=== PATIENT | male | born 1975 | race Caucasian/White ===

== ENCOUNTER → 2017-05-16 | Outpatient (CLI) | payer OTHER ==
[~2017-05-16] MED LIST: ARICEPT10 M1 PO; CYCLOBENZAPRINE5 M3 PO; KEFLEX500 MG PO; LOPID600 MG PO; MEDROL DOSEPAK4 MG PO; PRAVACHOL20 MG PO; PRILOSEC20 MG PO; SYNTHROID0.025 MG PO
== END | disposition home or self-care (01) ==
LOC: CT 10:40
DX: F03.90 Unspecified dementia, unspecified severity, without behavioral disturbance, psychotic disturbance, mood disturbance, and anxiety (principal); C71.6 Malignant neoplasm of cerebellum; Z98.890 Other specified postprocedural states; Z85.841 Personal history of malignant neoplasm of brain

== ENCOUNTER 2017-05-25 18:48 | Emergency (ER) | payer OTHER ==
[~2017-05-25] VITALS: Ht 167.6 cm; Wt 56.7 kg
[2017-05-25] MEDS ORDERED: PREDNISONE10 MG PO (19:44)
[2017-05-25] MEDS ORDERED: CYCLOBENZAPRINE5 M3 PO (19:44)
== END 2017-05-25 19:51 | disposition home or self-care (01) ==
LOC: ED 18:48
DX: S03.43XA Sprain of jaw, bilateral, initial encounter (principal); X58.XXXA Exposure to other specified factors, initial encounter; Y93.9 Activity, unspecified; Y92.89 Other specified places as the place of occurrence of the external cause; Y99.8 Other external cause status

== ENCOUNTER 2017-05-31 23:00 | Inpatient (IN) | payer OTHER ==
[~2017-05-31] VITALS: Ht 167.6 cm; Wt 60.0 kg
--- NOTE | ~2017-05-31 | CON ---
[place], [place] REPORT OF CONSULTATION NAME: JUAN PATTERSON UNIT #: [id number] ROOM: 505 DOCTOR: SONAL ESPARZA,PRISCILA BIRTHDATE: [birth year] DOS: 06/04/2017 HISTORY OF PRESENT ILLNESS: The patient is known with cirrhotic liver and compromised cognition, not secondary to serum ammonia level, advanced fatty metamorphosis of liver, which I expect to be cirrhotic, abnormal liver function tests. This could be a genetic mutation, multiple family members including mother with liver cirrhosis. His serum ferritin has been 1780. His INR 1.0, iron level 77, serum ammonia 23. Urine culture negative. Ultrasound of the abdomen, diffuse hepatic steatosis with suspected 1 cm lesion. MRI of the abdomen was done, details as indicated in the chart reviewed with parent and family members, diffuse fatty metamorphosis and no acute findings otherwise has been noticed. They have recommended 3 months follow up with MRI to have a baseline for the nonpathologic lesion that has been identified in the liver. His labs reviewed, records reviewed. REVIEW OF SYSTEMS: No hematemesis, no hematochezia, no shortness of breath, no chest pain. Digestive system: No diarrhea, no vomiting. PHYSICAL EXAMINATION: VITAL SIGNS: Mentally slow. HEENT: Head normocephalic, nontraumatic. Otherwise, mouth and buccal mucosa benign. NECK: Supple, no thyromegaly. CHEST: Symmetric anatomy, equal expansion. HEART: Normal sinus rhythm, no gallop, no murmur. ABDOMEN: Protuberant with liver enlargement. Bowel sounds present. EXTREMITIES: No cyanosis, no pedal edema. NEUROLOGIC: Alert and slow orientation. IMPRESSION AND PLAN: Recently found diffuse fatty liver, most likely early cirrhosis, multiple family members with liver disease. Serum ferritin level of greater than 8000. Iron level normal. I have still other orders waiting and I am going to get also antimitochondrial antibody if it has not been ordered. Ceruloplasmin, result is pending and workup in progress. I have recommended to the parents that this patient is better off to have followup [facility] or [facility] for his liver followup. PRISCILA PRUITT MD CM:CONSTR:REPORT OF CONSULTATION 1611 06/05/17 0030 interface
--- NOTE | ~2017-05-31 | CON ---
[place], [place] REPORT OF CONSULTATION NAME: JUAN PATTERSON UNIT #: [id number] ROOM: 523 DOCTOR: MACHO DERAS DPM BIRTHDATE: [birth year] DOS: 06/02/2017 SUBJECTIVE: This 42-year-old white male was seen and consulted for foot care bilaterally. The patient's parents states that he has thick calluses on the bottom of his feet. They did notice bleeding a few weeks ago, but have not seen it recently. The patient is diabetic. He came in with a blood sugar of 898. PAST MEDICAL HISTORY: Positive for medulloblastoma, TMJ syndrome, hypothyroidism, history of radiation and chemotherapy; esophageal ulcer and stricture, some mild dementia, history of hearing loss. ALLERGIES: None. CURRENT MEDICATIONS: Include Zestril, Lovenox, Aricept, Protonix, Synthroid, ____, insulin, heparin, Restoril, [place]. OBJECTIVE: Upon lower extremity physical examination, his pedal pulses are palpable. Skin temperature is warm. CFT is less than 2 seconds to all digits. Hair growth is present. No dependent edema is seen bilaterally. Sensation appears mildly decreased in the forefoot bilaterally. Plantar fat pad atrophy is seen in the metatarsal areas with prominent metatarsal heads noted. Some tenderness noted at the MPJs bilaterally. Nails 1 through 5 bilaterally are elongated and discolored, thick and dystrophic with debris present. There is thick hyperkeratotic tissue noted, plantar first and fifth metatarsal head bilaterally with no open areas, hemorrhagic tissue or signs of infection. No surrounding edema or erythema. No drainage or malodor. ASSESSMENT: Diabetes mellitus, onychomycosis 1 through 5 bilaterally, hyperkeratotic lesions bilaterally. PLAN: Consult is performed. Manual debridement of nails 1 through 5 bilaterally in length and thickness to the level of the nail bed to reduce hazards such as infection. I debrided hyperkeratotic lesions bilaterally. Discussed with the patient and his mother about palliative care at home as well as coming to the office for palliative foot care every 2 months. Discussed proper diabetic foot care. Follow up in 2 months as an outpatient. Thank you for the opportunity to take part in care of this patient. [place], [place] REPORT OF CONSULTATION NAME: JUAN PATTERSON UNIT #: [id number] ROOM: 523 DOCTOR: MACHO DERAS DPM BIRTHDATE: [birth year] MACHO DERAS DPM CM:CONSTR:REPORT OF CONSULTATION 1156 06/02/17 1234 interface
--- NOTE | ~2017-05-31 | CON ---
[place], [place] REPORT OF CONSULTATION NAME: JUAN PATTERSON UNIT #: [id number] ROOM: 523 DOCTOR: PRISCILA PRUITT MD BIRTHDATE: [birth year] DOS: 06/02/2017 HISTORY OF PRESENT ILLNESS: This is a 42-year-old patient who has presented with weakness, tiredness. The patient had to be assessed with abnormal liver function test and fatty liver at this age without alcohol history. White blood cell was 8, H and H 15 and 44, platelet count 301. Ionized calcium 4.6. Lactic acid 3.6. CT of the head, left anterior semiovalum uncertain etiology represent parenchymal underlying. Pathology in the brain as detailed. Suboccipital surgery history. The patient's blood sugar of about 900 with pseudohyponatremia, borderline electrolyte imbalance that has been addressed, SGOT, SGPT elevation of 100 and 180+. Lipase normal. Ketones positive 1-4. Lactic acid 3.4. Sonogram of the abdomen, liver with diffuse hepatic steatosis, hypoechoic lesion in the liver in the left side, 1 cm in its diameters. MRI of the liver has been ordered. Urine cultures have been negative. Comprehensive metabolic panel reassessed again. Blood glucose level has been controlled. PAST MEDICAL HISTORY: TMJ, hypothyroidism, medulloblastoma history, status post chemotherapy; esophageal ulcer, mild dementia. PAST SURGICAL HISTORY: Occipital craniotomy. ALLERGIES: To no known medication. MEDICATIONS: Medication list has been reviewed. SOCIAL HISTORY: Nonsmoker, nonalcohol consumer. FAMILY HISTORY: Noncontributory. REVIEW OF SYSTEMS: HEENT: Denies double vision, blurred vision. RESPIRATORY: Denies shortness of breath. CARDIOVASCULAR: Denies chest pain. DIGESTIVE SYSTEM: He expresses nausea. PHYSICAL EXAMINATION: VITAL SIGNS: Stable. HEENT: Status post medulloblastoma history, otherwise eyes pupils round, reactive. Sclerae nonicteric. Conjunctivae pink. NECK: Supple, no thyromegaly. CHEST: Symmetric anatomy, equal expansion. No wheeze, no rhonchi. HEART: Normal sinus rhythm, no gallop, no murmur. ABDOMEN: Soft. No hepato-organomegaly. Bowel sounds present. EXTREMITIES: No cyanosis, no pedal edema. NEUROLOGIC: Alert, oriented to time, place, person. IMPRESSION: Abnormal liver function test, diffuse fatty metamorphosis of liver with a nodule in the liver. The patient with multi-family members with cirrhotic liver, wondering if a genetic predisposition, medulloblastoma history in past, uncontrolled diabetes mellitus. [place], [place] REPORT OF CONSULTATION NAME: JUAN PATTERSON UNIT #: [id number] ROOM: 523 DOCTOR: SONAL ESPARZA,PRISCILA BIRTHDATE: [birth year] PLAN AND DISCUSSION: We are going to obtain a MRI of the liver for definition of nodules in liver with a diameter of 1 cm. Otherwise medical management of other issues on hand, I am going to do a basic liver workup including viral hepatitis antibodies, serum ceruloplasmin, ferritin level and basic workup. Other including serum ammonia and PT, PTT in case biopsy becomes eminent and will adjust her management as we go along. PRISCILA PRUITT MD CM:CONSTR:REPORT OF CONSULTATION 1845 06/03/17 0308 interface
[2017-05-31 23:00] VITALS: BP 144/75
[~2017-05-31 23:00] MED LIST changes: +PREDNISONE10 MG PO
[2017-06-01 00:28] LABS: BASO % 0.1 % (0.0-1.0); HEMATOCRIT 44.4 % (42.0-52.0); HEMOGLOBIN 15.6 g/dl (14.0-18.0); LYMPH # 1.9 10*3/uL (1.3-4.4); LYMPH % 20.9 % (27.0-41.0); MEAN CELL VOLUME 82.2 fl (80.0-94.0); MEAN CORPUSCULAR HGB 28.9 pg (27.0-31.0); MEAN CORPUSCULAR HGB CONC 35.1 g/dl (33.0-37.0); MEAN PLATELET VOLUME 12.1 fl (9.6-12.3); MONO # 0.5 10*3/uL (0.1-1.0); MONO % 5.9 % (3.0-9.0); NEUT # 6.4 10*3/uL (2.3-7.9); NEUT % 72.5 % (47.0-73.0); PLATELET COUNT AUTOMATED 301 10*3/uL (130-400); RED CELL DISTRI WIDTH 12.7 % (0-14.5); WHITE BLOOD COUNT 8.9 10*3/uL (4.8-10.8)
[2017-06-01 00:49] LABS: ALBUMIN 4.1 gm/dl (3.1-4.5); CREATININE 1.72 mg/dL (0.70-1.30); POTASSIUM 5.4 mmol/L (3.5-5.1); TOTAL PROTEIN 9.5 gm/dL (6.4-8.2)
[2017-06-01 00:55] LABS: THYROID STIM HORMONE (HS) 0.229 uIU/ml (0.358-4.75)
[2017-06-01 03:30] VITALS: BP 138/81
[2017-06-01 05:42] LABS: ACT PARTIAL THROMBO TIME 19.3 SECONDS (20.8-31.5)
[2017-06-01 05:46] LABS: BUN 37 mg/dl (7-24); CHLORIDE 106 mmol/L (98-107); CREATININE 1.34 mg/dL (0.70-1.30)
[2017-06-01 05:56] LABS: BASO % 0.2 % (0.0-1.0); EOS % 0.1 % (1.0-4.0); HEMATOCRIT 42.1 % (42.0-52.0); HEMOGLOBIN 14.4 g/dl (14.0-18.0); LYMPH # 2.9 10*3/uL (1.3-4.4); LYMPH % 28.2 % (27.0-41.0); MEAN CORPUSCULAR HGB 28.7 pg (27.0-31.0); MEAN CORPUSCULAR HGB CONC 34.2 g/dl (33.0-37.0); MEAN PLATELET VOLUME 11.2 fl (9.6-12.3); MONO % 9.4 % (3.0-9.0); NEUT # 6.3 10*3/uL (2.3-7.9); NEUT % 61.7 % (47.0-73.0); PLATELET COUNT AUTOMATED 265 10*3/uL (130-400); RED BLOOD COUNT 5.01 10*6/uL (4.50-5.90); RED CELL DISTRI WIDTH 12.5 % (0-14.5); WHITE BLOOD COUNT 10.1 10*3/uL (4.8-10.8)
[2017-06-01 06:09] LABS: POTASSIUM 4.2 mmol/L (3.5-5.1); SODIUM 142 mmol/L (136-145)
[2017-06-01 07:49] LABS: VITAMIN D, 25-HYDROXY 7.4 ng/mL (30-100)
[2017-06-01 08:00] VITALS: BP 133/82
[2017-06-01 08:55] LABS: FREE T4 1.14 ng/dl (0.76-1.46); PHOSPHOROUS 3.1 mg/dL (2.5-4.9)
[2017-06-01 09:16] LABS: BUN 33 mg/dl (7-24); CHLORIDE 111 mmol/L (98-107); CREATININE 1.15 mg/dL (0.70-1.30); POTASSIUM 3.5 mmol/L (3.5-5.1); SODIUM 148 mmol/L (136-145)
[2017-06-01 11:46] LABS: BILIRUBIN NEGATIVE (NEGATIVE); BLOOD 3+ (NEGATIVE); CLARITY CLEAR (CLEAR); COLOR YELLOW (YELLOW); GLUCOSE NEGATIVE (NEGATIVE); KETONE NEGATIVE (NEGATIVE); LEUKO ESTERASE NEGATIVE (NEGATIVE); NITRITE NEGATIVE (NEGATIVE); PH 5.5 (5.0-9.0); UROBILINOGEN 0.2 E.U./dl (0.2-1.0)
[2017-06-01 11:55] LABS: BUN 29 mg/dl (7-24); CHLORIDE 105 mmol/L (98-107); CREATININE 1.09 mg/dL (0.70-1.30); POTASSIUM 3.9 mmol/L (3.5-5.1); SODIUM 140 mmol/L (136-145)
[2017-06-01 12:00] VITALS: BP 115/51
[2017-06-01 12:08] LABS: BACTERIA 1+; RBC 31-40 rbc/hpf (0-2)
[2017-06-01 16:00] VITALS: BP 106/53
[2017-06-01 20:00] VITALS: BP 137/73
[2017-06-02] VITALS: BP 134/65
[2017-06-02 06:50] LABS: MEAN CELL VOLUME 86.2 fl (80.0-94.0); MEAN CORPUSCULAR HGB 28.4 pg (27.0-31.0); MEAN PLATELET VOLUME 10.9 fl (9.6-12.3); RED BLOOD COUNT 4.05 10*6/uL (4.50-5.90); RED CELL DISTRI WIDTH 12.5 % (0-14.5)
[2017-06-02 06:52] LABS: HEMATOCRIT 34.9 % (42.0-52.0); HEMOGLOBIN 11.5 g/dl (14.0-18.0); PLATELET COUNT AUTOMATED 163 10*3/uL (130-400)
[2017-06-02 07:07] LABS: ALBUMIN 2.8 gm/dl (3.1-4.5); ALKALINE PHOSPHATASE 76 U/L (45-117); CHLORIDE 106 mmol/L (98-107); CREATININE 0.84 mg/dL (0.70-1.30); PHOSPHOROUS 2.2 mg/dL (2.5-4.9); POTASSIUM 3.6 mmol/L (3.5-5.1); SGOT/AST 98 IU/L (3-35); SGPT/ALT 121 U/L (12-78); SODIUM 139 mmol/L (136-145); TOTAL PROTEIN 6.2 gm/dL (6.4-8.2)
[2017-06-02 07:12] LABS: BASOPHILS 1 % (0-1); TOTAL CELLS COUNTED 100 #CELLS
[2017-06-02 07:13] LABS: PLATELET SUFFICIENCY NORMAL (NORMAL)
[2017-06-02 07:17] LABS: BUN 16 mg/dl (7-24)
[2017-06-02 08:00] VITALS: BP 134/74
[2017-06-02 12:00] VITALS: BP 124/68
[2017-06-02 16:00] VITALS: BP 144/67
[2017-06-02 20:09] VITALS: BP 143/67
[2017-06-03 07:49] LABS: ACT PARTIAL THROMBO TIME 22.8 SECONDS (20.8-31.5)
[2017-06-03 08:00] VITALS: BP 127/71
[2017-06-03 12:00] VITALS: BP 117/66
[2017-06-03 16:00] VITALS: BP 116/62
[2017-06-03 20:00] VITALS: BP 133/67
[2017-06-04] VITALS: BP 107/61
[2017-06-04 04:00] VITALS: BP 120/73
[2017-06-04 06:09] LABS: AFP TUMOR MARKER 002253 2.6 ng/mL (0.0-8.3)
[2017-06-04 08:00] VITALS: BP 102/56
[2017-06-04 08:11] LABS: HEPATITIS B SURFACE AG Negative (Negative); HEPATITIS C VIRUS ANTIBODY <0.1 s/co (0.0-0.9)
[2017-06-04 12:00] VITALS: BP 106/66
[2017-06-04 16:00] VITALS: BP 111/59
[2017-06-04] MEDS ORDERED: LIPITOR10 MG PO (16:05)
[2017-06-04] MEDS ORDERED: LISINOPRIL2.5 MG PO (16:05)
== END 2017-06-04 17:48 | disposition other institution (70) | DRG 682 ==
LOC: ED 23:00 → EDHOLD 06-01 01:36 → 5E 06-01 01:36 → ICCU 06-01 01:47 → 5E 06-01 17:50
PROVIDERS: Emergency Medicine Emergency Medical Services; Family Medicine; Internal Medicine; Internal Medicine Gastroenterology
PROC: 0HBRXZZ Excision of Toe Nail, External Approach (ICD-10-PCS; principal; 2017-06-02)
DX: N17.0 Acute kidney failure with tubular necrosis (principal); E13.00 Other specified diabetes mellitus with hyperosmolarity without nonketotic hyperglycemic-hyperosmolar coma (NKHHC); R65.11 Systemic inflammatory response syndrome (SIRS) of non-infectious origin with acute organ dysfunction; G93.41 Metabolic encephalopathy; K22.10 Ulcer of esophagus without bleeding; C71.6 Malignant neoplasm of cerebellum; E86.0 Dehydration; S03.40XA Sprain of jaw, unspecified side, initial encounter; R33.8 Other retention of urine; R26.2 Difficulty in walking, not elsewhere classified; R74.0 Nonspecific elevation of levels of transaminase and lactic acid dehydrogenase [LDH]; E78.5 Hyperlipidemia, unspecified; E03.9 Hypothyroidism, unspecified; E55.9 Vitamin D deficiency, unspecified; K76.0 Fatty (change of) liver, not elsewhere classified; F03.90 Unspecified dementia, unspecified severity, without behavioral disturbance, psychotic disturbance, mood disturbance, and anxiety; H91.90 Unspecified hearing loss, unspecified ear; B35.1 Tinea unguium; L85.9 Epidermal thickening, unspecified; Z79.899 Other long term (current) drug therapy; Z92.21 Personal history of antineoplastic chemotherapy; Z92.3 Personal history of irradiation; Z83.79 Family history of other diseases of the digestive system; Z83.3 Family history of diabetes mellitus; X58.XXXA Exposure to other specified factors, initial encounter; Y93.89 Activity, other specified; Y92.89 Other specified places as the place of occurrence of the external cause; Y99.8 Other external cause status

== ENCOUNTER → 2017-07-29 | Outpatient (CLI) | payer OTHER ==
[~2017-07-29] MED LIST changes: +LIPITOR10 MG PO; +LISINOPRIL2.5 MG PO
== END | disposition home or self-care (01) ==
LOC: CARD 12:45
DX: R01.1 Cardiac murmur, unspecified (principal)

== ENCOUNTER → 2019-02-26 | Outpatient (CLI) | payer OTHER ==
[2019-02-26 12:11] LABS: ALKALINE PHOSPHATASE 82 U/L (45-117); BUN 12 mg/dl (7-24); CHLORIDE 104 mmol/L (98-107); CHOLESTEROL 165 mg/dL (<200); CREATININE 0.92 mg/dL (0.70-1.30); HDL CHOLESTEROL 34 mg/dl (40-60); POTASSIUM 4.2 mmol/L (3.5-5.1); SGOT/AST 51 IU/L (3-35); SGPT/ALT 108 U/L (12-78); SODIUM 139 mmol/L (136-145); TOTAL PROTEIN 7.8 gm/dL (6.4-8.2); TRIGLYCERIDES 415 mg/dl (<150)
== END | disposition home or self-care (01) ==
LOC: LAB 10:47
PROVIDERS: Registered Nurse Flight
DX: E10.9 Type 1 diabetes mellitus without complications (principal); E03.9 Hypothyroidism, unspecified; E78.00 Pure hypercholesterolemia, unspecified; K76.89 Other specified diseases of liver

== ENCOUNTER 2019-10-03 12:19 | Emergency (ER) | payer OTHER ==
[~2019-10-03] VITALS: Ht 167.6 cm; Wt 72.1 kg
[2019-10-03 13:01] LABS: HEMATOCRIT 42.1 % (42.0-52.0); MEAN CELL VOLUME 85.7 fl (80.0-94.0); MEAN CORPUSCULAR HGB 28.5 pg (27.0-31.0); MEAN CORPUSCULAR HGB CONC 33.3 g/dl (33.0-37.0); MEAN PLATELET VOLUME 9.8 fl (9.6-12.3); PLATELET COUNT AUTOMATED 166 10*3/uL (130-400); RED BLOOD COUNT 4.91 10*6/uL (4.50-5.90); RED CELL DISTRI WIDTH 13.2 % (0-14.5); WHITE BLOOD COUNT 7.1 10*3/uL (4.8-10.8)
[2019-10-03 13:13] LABS: ALBUMIN 3.5 gm/dl (3.1-4.5); ALKALINE PHOSPHATASE 100 U/L (45-117); BUN 19 mg/dl (7-24); CHLORIDE 101 mmol/L (98-107); CREATININE 1.13 mg/dL (0.70-1.30); SGOT/AST 32 IU/L (3-35); SGPT/ALT 65 U/L (12-78); SODIUM 136 mmol/L (136-145); TOTAL PROTEIN 7.6 gm/dL (6.4-8.2)
[2019-10-03 13:19] LABS: ATYPICAL LYMPHS 1 % (0-0); PLATELET SUFFICIENCY NORMAL (NORMAL); TOTAL CELLS COUNTED 100 #CELLS
[2019-10-03] MEDS ORDERED: LEVOFLOXACIN500 MG PO (17:02)
== END 2019-10-03 17:12 | disposition home or self-care (01) ==
LOC: ED 12:19
PROVIDERS: Emergency Medicine
DX: J18.9 Pneumonia, unspecified organism (principal); R11.2 Nausea with vomiting, unspecified; R19.7 Diarrhea, unspecified; Z20.828 Contact with and (suspected) exposure to other viral communicable diseases; Z79.899 Other long term (current) drug therapy

== ENCOUNTER → 2019-11-10 | Outpatient (CLI) | payer OTHER ==
[~2019-11-10] MED LIST changes: +LEVOFLOXACIN500 MG PO
[2019-11-10 11:13] LABS: BASO # 0.1 10*3/uL (0.0-0.1); BASO % 0.9 % (0.0-1.0); EOS # 0.1 10*3/uL (0.0-0.4); EOS % 1.7 % (1.0-4.0); HEMATOCRIT 46.3 % (42.0-52.0); LYMPH % 40.2 % (27.0-41.0); MEAN CELL VOLUME 87.4 fl (80.0-94.0); MEAN CORPUSCULAR HGB 28.5 pg (27.0-31.0); MEAN CORPUSCULAR HGB CONC 32.6 g/dl (33.0-37.0); MEAN PLATELET VOLUME 9.6 fl (9.6-12.3); MONO # 0.5 10*3/uL (0.1-1.0); MONO % 6.6 % (3.0-9.0); NEUT # 3.7 10*3/uL (2.3-7.9); NEUT % 50.5 % (47.0-73.0); PLATELET COUNT AUTOMATED 212 10*3/uL (130-400); RED CELL DISTRI WIDTH 13.9 % (0-14.5); WHITE BLOOD COUNT 7.4 10*3/uL (4.8-10.8)
[2019-11-10 11:37] LABS: ALBUMIN 4.2 gm/dl (3.1-4.5); BUN 14 mg/dl (7-24); CHLORIDE 104 mmol/L (98-107); CHOLESTEROL 180 mg/dL (<200); CREATININE 0.86 mg/dL (0.70-1.30); POTASSIUM 4.3 mmol/L (3.5-5.1); SGOT/AST 39 IU/L (3-35); SGPT/ALT 108 U/L (12-78); SODIUM 139 mmol/L (136-145); TRIGLYCERIDES 432 mg/dl (<150)
[2019-11-10 11:45] LABS: ALKALINE PHOSPHATASE 98 U/L (45-117); FREE T4 1.14 ng/dl (0.76-1.46); HDL CHOLESTEROL 39 mg/dl (40-60); TOTAL PROTEIN 8.1 gm/dL (6.4-8.2)
[2019-11-11 10:09] LABS: CREATININE,URINE 146.4 mg/dL (Not Estab.)
[2019-11-17 15:10] LABS: GLUTAMIC ACID DECARB AB <5.0 U/mL (0.0-5.0)
== END | disposition home or self-care (01) ==
LOC: LAB 10:41
PROVIDERS: Family Medicine; ATTEND Family Medicine
DX: E11.9 Type 2 diabetes mellitus without complications (principal); E55.9 Vitamin D deficiency, unspecified; E78.5 Hyperlipidemia, unspecified; E03.9 Hypothyroidism, unspecified; K76.0 Fatty (change of) liver, not elsewhere classified

== ENCOUNTER → 2020-02-28 | Outpatient (CLI) | payer OTHER ==
[2020-02-28 12:42] LABS: CHOLESTEROL 224 mg/dL (<200); HDL CHOLESTEROL 42 mg/dl (40-60); LDL CHOLESTEROL 117 mg/dL (9-159); TRIGLYCERIDES 325 mg/dl (<150); VLDL CHOLESTEROL 65 mg/dL (6-40)
== END | disposition home or self-care (01) ==
LOC: LAB 10:59
PROVIDERS: Family Medicine; ATTEND Family Medicine
DX: E78.5 Hyperlipidemia, unspecified (principal)

== ENCOUNTER → 2020-05-01 | Outpatient (CLI) | payer OTHER | END | disposition home or self-care (01) | LOC: LAB 11:24 | PROVIDERS: ATTEND Physician Assistant | DX: K76.0 Fatty (change of) liver, not elsewhere classified (principal) ==

== ENCOUNTER 2021-02-26 14:31 | Emergency (ER) | payer OTHER ==
[~2021-02-26] VITALS: Ht 167.6 cm; Wt 68.0 kg
[2021-02-26] MEDS ORDERED: GEMFIBROZIL600 MG PO (14:42)
[2021-02-26] MEDS ORDERED: TRULICITY0.75 MG/0. SC (14:43)
[2021-02-26 19:44] LABS: BASO % 0.5 % (0.0-1.0); EOS # 0.1 10*3/uL (0.0-0.4); EOS % 1.5 % (1.0-4.0); HEMATOCRIT 40.2 % (42.0-52.0); LYMPH # 1.9 10*3/uL (1.3-4.4); LYMPH % 23.3 % (27.0-41.0); MEAN CELL VOLUME 87.6 fl (80.0-94.0); MEAN CORPUSCULAR HGB 28.8 pg (27.0-31.0); MEAN CORPUSCULAR HGB CONC 32.8 g/dl (33.0-37.0); MEAN PLATELET VOLUME 9.6 fl (9.6-12.3); MONO # 1.1 10*3/uL (0.1-1.0); MONO % 13.2 % (3.0-9.0); NEUT % 61.3 % (47.0-73.0); PLATELET COUNT AUTOMATED 205 10*3/uL (130-400); RED BLOOD COUNT 4.59 10*6/uL (4.50-5.90); RED CELL DISTRI WIDTH 13.8 % (0-14.5); WHITE BLOOD COUNT 8.1 10*3/uL (4.8-10.8)
[2021-02-26 20:01] LABS: ALBUMIN 3.8 gm/dl (3.1-4.5); CREATININE 1.71 mg/dL (0.70-1.30); POTASSIUM 4.2 mmol/L (3.5-5.1); TOTAL PROTEIN 8.5 gm/dL (6.4-8.2)
[2021-02-27] MEDS ORDERED: AUGMENTIN 875-875 MG PO (00:10)
== END 2021-02-27 00:21 | disposition home or self-care (01) ==
LOC: ED 14:31
PROVIDERS: Emergency Medicine
DX: J18.9 Pneumonia, unspecified organism (principal); Z20.822 Contact with and (suspected) exposure to COVID-19; E86.0 Dehydration; E78.5 Hyperlipidemia, unspecified; E03.9 Hypothyroidism, unspecified; E11.9 Type 2 diabetes mellitus without complications; Z79.899 Other long term (current) drug therapy